=== PATIENT | female | born 1985 | race Caucasian/White ===

== ENCOUNTER → 2018-06-23 | Outpatient (CLI) | payer OTHER ==
[~2018-06-23] VITALS: Ht 166.4 cm; Wt 171.7 kg
[~2018-06-23] MED LIST: ADVIL200 MG PO; TYLENOL 500MG500 MG PO
[2018-06-23 14:01] VITALS: BP 124/86; PULSE 72
== END ==
LOC: LIGHT 13:33
DX: Z01.818 Encounter for other preprocedural examination (principal)
CPT/HCPCS: G0463

== ENCOUNTER 2018-08-13 11:49 | Inpatient (IN) | payer OTHER ==
[~2018-08-13] VITALS: Ht 167.6 cm; Wt 168.5 kg
[2018-09-03] VITALS (11 sets, daily range): BP systolic 126–151; BP diastolic 64–98; PULSE 85–104; TEMP 98.3–98.4
[2018-09-04 01:30] VITALS: BP 138/66; PULSE 88; TEMP 98.6
[2018-09-04 04:37] VITALS: BP 139/78; PULSE 99; TEMP 98.6
[2018-09-04 08:30] VITALS: BP 140/70; PULSE 87; TEMP 98.3
[2018-09-04 10:55] VITALS: BP 144/78; PULSE 87; TEMP 98.7
== END 2018-09-04 17:49 | disposition home or self-care (01) | DRG 621 ==
LOC: INPTSU 09-03 09:30 → SURG 09-03 09:30
PROVIDERS: Surgery
PROC: 0DB64Z3 Excision of Stomach, Percutaneous Endoscopic Approach, Vertical (ICD-10-PCS; principal; 2018-09-03 12:00)
DX: E66.01 Morbid (severe) obesity due to excess calories (principal); Z68.44 Body mass index [BMI] 60.0-69.9, adult
CPT/HCPCS: A9284; J1170; J1200; J2405; J2550; J2704; J3010; J7042; J7120

== ENCOUNTER → 2018-08-26 | Outpatient (CLI) | payer OTHER | LOC: LIGHT 10:18 | DX: Z01.818 Encounter for other preprocedural examination (principal); E66.01 Morbid (severe) obesity due to excess calories; Z68.43 Body mass index [BMI] 50.0-59.9, adult ==

== ENCOUNTER → 2018-09-15 | Outpatient (CLI) | payer OTHER ==
[~2018-09-15] VITALS: Ht 166.4 cm; Wt 159.9 kg
[~2018-09-15] MED LIST changes: +B-12 500 MCG PO; +CALCIUM WITH D31 CTB PO; +COLACE 100100 MG/CAP PO; +FLINTSTONES COM1 CT1 PO
[2018-09-15 14:51] VITALS: BP 106/80; PULSE 84
== END ==
LOC: LIGHT 07:55
DX: Z98.84 Bariatric surgery status (principal); E66.01 Morbid (severe) obesity due to excess calories; Z68.43 Body mass index [BMI] 50.0-59.9, adult; Z71.3 Dietary counseling and surveillance